=== PATIENT | male | born 1965 | race Caucasian/White ===

== ENCOUNTER 2023-06-04 09:58 | Emergency (ER) | payer OTHER ==
--- OUTSIDE RECORDS SUMMARY | 2023-06-04 10:02 | XMS REPORT | Continuity of Care Document ---
Author Name Unknown Address [address] [facility] [address] [place] [address] [facility] thconnect Address [address] [facility] [address] [place] [address] Care Team Providers Care Filter Tank Tender Name Role Phone Melody RIVERA Attending Clinician Unavailable Arnoldo Mendoza Attending Clinician Unava ilArnoldo Baker Attending Clinician Unava ilable Arnoldo Mendoza Admitting Clinician Unakings ilable Payers Payer Name Policy Type Policy Number Effective Date Expirati on Date Source Problems Condition Name Condition Details Condition Category Status Onset Date Resolution Date Last Treatment Date Treating Clinician Comments Source Screening for cardiovasc ular system disease Screening for cardiovasc ular condition Problem Common [facility] Snoring Snoring Problem [facility] Morbid obesity Morbid obesity Problem Common [facility] Fatigue Fatigue Problem [facility] Sleep apnea Sleep apnea Problem [facility] Gastroesop hageal reflux disease GERD (gastroeso phageal reflux disease) Problem [facility] Nocturia Nocturia Problem [facility] [id number] Vitamin D deficiency Problem [facility] Reduced libido Decreased libido Problem [facility] [id number] Body mass index (BMI) of 45.0-49.9 in adult Problem [facility] [id number] Primary osteoarthr itis of right knee Problem [facility] Chest pain Chest pain Problem Co mmon [facility] [id number] S/P right knee arthroscop y Problem [facility] Allergic rhinitis Allergic rhinitis Problem [facility] [id number] Unspecifie d injury of right lower leg, initial encounter Problem [facility] [id number] Fever and chills Problem [facility] [id number] Influenza A Problem [facility] [id number] Pain, joint, knee, right Problem [facility] [id number] Other tear of medial meniscus of right knee as current injury, subsequent encounter Problem [facility] Class 3 severe obesity due to excess calories in adult Problem Active [facility] Allergies, Adverse Reactions, Alerts Allergy Name Allergy Type Status Severity Reaction(s) Onset Date Inactive Date Treating Clinician Comments Source Ibuprofe n Allergy to substanc e Active Unknown 07-06 00:00: [address] [facility] ibuprofe n ibuprofe n Active swelling of face, throat, lips, tongue [facility] ibuprofe n Drug Active [facility] Social History Social Habit Start Date Stop Date Quantity Comments Source History of Tobacco Use [facility] Sex Assigned At [facility] Smoking Status Start Date Stop Date Source Never Smoker [facility] Medications Ordered Medication Name Filled Medication Name Start Date Stop Date Current Medication? Ordering Clinician Indication Dosage Frequency Signature (SIG) Comments Components Source Acetaminoph en-Codeine 300-30 MG Acetaminoph en-Codeine 300-30 MG 2022-02 2- 00:00: 00 No 1{table t_as_ne eded} QID Acetaminop hen-Codein e 300-30 MG Acetaminoph en-Codeine 300-30 MG Acetaminoph en-Codeine 300-30 MG 2022-02 2- 00:00: 00 No 1{table t_as_ne eded} QID Acetaminop hen-Codein e 300-30 MG Acetaminoph en-Codeine 300-30 MG Acetaminoph en-Codeine 300-30 MG 3-1 2-12 00:00: 00 No 1{table t_as_ne eded} QID Acetaminop hen-Codein e 300-30 MG Acetaminoph en-Codeine 300-30 MG Acetaminoph en-Codeine 300-30 MG 3-1 2-12 00:00: 00 No 1{table t_as_ne eded} QID Acetaminop hen-Codein e 300-30 MG Acetaminoph en-Codeine 300-30 MG Acetaminoph en-Codeine 300-30 MG 3-1 2-12 00:00: 00 No 1{table t_as_ne eded} QID Acetaminop hen-Codein e 300-30 MG Acetaminoph en-Codeine 300-30 MG Acetaminoph en-Codeine 300-30 MG 3-1 2-12 00:00: 00 No 1{table t_as_ne eded} QID Acetaminop hen-Codein e 300-30 MG Xarelto 10 MG Xarelto 10 MG 3- 2-11 00:00: 00 No 1{table t} QD Xarelto 10 MG Xarelto 10 MG Xarelto 10 MG 2022-1 2-11 00:00: 00 No 1{table t} QD Xarelto 10 MG Xarelto 10 MG Xarelto 10 MG 2022- 2-11 00:00: 00 No 1{table t} QD Xarelto 10 MG Xarelto 10 MG Xarelto 10 MG 2022-1 2-11 00:00: 00 No 1{table t} QD Xarelto 10 MG Xarelto 10 MG Xarelto 10 MG 3-1 2-11 00:00: 00 No 1{table t} QD Xarelto 10 MG Xarelto 10 MG Xarelto 10 MG 2022-1 2-11 00:00: 00 No 1{table t} QD Xarelto 10 MG Meloxicam 7.5 MG Meloxicam 7.5 MG 3-1 1-20 00:00: 00 No 1{table t} QD Meloxicam 7.5 MG Meloxicam 7.5 MG Meloxicam 7.5 MG 2022-02 00:00: 00 No 1{table t} QD Meloxicam 7.5 MG Meloxicam 7.5 MG Meloxicam 7.5 MG 2022-02 00:00: 00 No 1{table t} QD Meloxicam 7.5 MG Meloxicam 7.5 MG Meloxicam 7.5 MG 2022-02 00:00: 00 No 1{table t} QD Meloxicam 7.5 MG Meloxicam 7.5 MG Meloxicam 7.5 MG 2022-02 00:00: 00 No 1{table t} QD Meloxicam 7.5 MG Meloxicam 7.5 MG Meloxicam 7.5 MG 2022-02 00:00: 00 No 1{table t} QD Meloxicam 7.5 MG Tamiflu Tamiflu 2019-0 2-20 00:00: 00 Yes Adelita Fry 1 capsule Common [facility] Tamiflu 75 MG Tamiflu 75 MG 2019-0 2-20 00:00: 00 No 1{capsu le} BID Tamiflu 75 MG Tamiflu 75 MG Tamiflu 75 MG 2019-0 2-20 00:00: 00 No 1{capsu le} BID Tamiflu 75 MG Tamiflu 75 MG Tamiflu 75 MG 2019-0 2-20 00:00: 00 No 1{capsu le} BID Tamiflu 75 MG Tamiflu 75 MG Tamiflu 75 MG 2019-0 2-20 00:00: 00 No 1{capsu le} BID Tamiflu 75 MG Tamiflu 75 MG Tamiflu 75 MG 2019-0 2-20 00:00: 00 No 1{capsu le} BID Tamiflu 75 MG Tamiflu 75 MG Tamiflu 75 MG 2019-0 2-20 00:00: 00 No 1{capsu le} BID Tamiflu 75 MG Xarelto Xarelto 2018- 2- 00:00: 00 Yes Adelita Fry 1 tablet with food Common [facility] Xarelto 20 MG Xarelto 20 MG No 1{table t_with_ food} QD Xarelto 20 MG Xarelto 20 MG Xarelto 20 MG No 1{table t_with_ food} QD Xarelto 20 MG Xarelto 20 MG Xarelto 20 MG No 1{table t_with_ food} QD Xarelto 20 MG Xarelto 20 MG Xarelto 20 MG No 1{table t_with_ food} QD Xarelto 20 MG Xarelto 20 MG Xarelto 20 MG No 1{table t_with_ food} QD Xarelto 20 MG Xarelto 20 MG Xarelto 20 MG No 1{table t_with_ food} QD Xarelto 20 MG No Home Meds No [facility] Vital Signs Vital Name Observation Time Observation Value Comments S ource bmi 2023-02-11 09:00:00 41.55 kg/m2 Comm on [facility] blood pressure systolic 2023-02-11 09:00:00 136 mm[Hg] [facility] blood pressure diastolic 2023-02-11 09:00:00 84 mm[Hg] [facility] height 2023-02-11 09:00:00 73.0 [in_i] Comm on [facility] weight 2023-02-11 09:00:00 315 [lb_av] Comm on [facility] temperature 2023-02-11 09:00:00 97.8 [degF] Com [facility] height 2023-02-03 10:00:00 73.0 [in_i] Comm on [facility] weight 2023-02-03 10:00:00 316 [lb_av] Comm on [facility] temperature 2023-02-03 10:00:00 98.1 [degF] Com [facility] bmi 2023-02-03 10:00:00 41.69 kg/m2 Comm on [facility] blood pressure systolic 2023-02-03 10:00:00 130 mm[Hg] [facility] blood pressure diastolic 2023-02-03 10:00:00 80 mm[Hg] [facility] height 2023-01-18 10:30:00 73.0 [in_i] Comm on [facility] weight 2023-01-18 10:30:00 317 [lb_av] Comm on [facility] temperature 2023-01-18 10:30:00 98.2 [degF] Com [facility] bmi 2023-01-18 10:30:00 41.82 kg/m2 Comm on [facility] blood pressure systolic 2023-01-18 10:30:00 133 mm[Hg] Common [facility] blood pressure diastolic 2023-01-18 10:30:00 81 mm[Hg] [facility] height 2022-12-28 09:00:00 73.0 [in_i] Comm on [facility] weight 2022-12-28 09:00:00 316 [lb_av] Comm on [facility] temperature 2022-12-28 09:00:00 98.6 [degF] Com [facility] bmi 2022-12-28 09:00:00 41.69 kg/m2 Comm on [facility] blood pressure systolic 2022-12-28 09:00:00 132 mm[Hg] [facility] blood pressure diastolic 2022-12-28 09:00:00 78 mm[Hg] [facility] Height/Length Measured 2021-02-27 09:13:43 186 cm Weight Dosing 2021-02-27 09:13:43 132.00 kg Procedures Procedure Date / Time Performed Performing Clinicia n Source Low level established patient office visit 2019-02-21 00:00:00 [facility] Encounters Start Date/Time End Date/Time Encounter Type Admission Type Attending Clinicians Care Facility Care Department Encounter ID Source 2023-02-04 11:29:00 [facility] [id number] [facility] 2022-12-28 09:26:00 Outpatient Melody RIVERA [facility]ITAL[facility] STLC [id number] [facility] 2022-12-24 12:00:00 Outpatient RIVERA, Na STLMLC STLMLC [id number] [facility] 2021-03-05 11:21:20 Outpatient Bree Na STLMLC STLMLC [id number] [facility] 2021-03-05 11:19:50 Outpatient Bree Na STLMLC STLMLC [id number] [facility] 2021-03-05 11:08:52 Outpatient Rivera, Na STLMLC STLMLC [id number] [facility] 2021-03-05 11:04:23 Outpatient Bree Na STLMLC STLMLC [id number] [facility] 2023-02-11 00:00:00 2023-02-11 00:00:00 (F/U) Follow Up Visit STLMLC STLMLC [id number] [facility] 2023-02-03 00:00:00 2023-02-03 00:00:00 (PO) Post Op STLMLC STLMLC [id number] [facility] 2023-01-18 00:00:00 2023-01-18 00:00:00 (F/U) Follow Up Visit STLMLC STLMLC [id number] [facility] 2023-01-18 00:00:00 2023-01-18 00:00:00 (TEL) STLMLC STLMLC [id number] [facility] 2022-12-29 00:00:00 2022-12-29 00:00:00 (TEL) STLMLC STLMLC [id number] [facility] 2022-12-28 00:00:00 2022-12-28 00:00:00 ([facility] [employer]) New Patient STLMLC STLMLC [id number] [facility] 2019-05-22 08:10:00 2019-05-22 08:10:00 Outpatient Mikael tim [facility] Louie [facility] [id number] [facility] 2019-03-30 08:00:00 2019-03-30 08:00:00 [facility] [facility] [id number] [facility] 2019-03-24 03:23:00 2019-03-24 03:23:00 [facility] [address] [facility] [facility] [id number] [facility] 2019-02-21 10:38:00 2019-03-10 23:59:00 Discharged Recurring JAMAL MEDRANO [facility] [id number] [address] [place] [address] 2019-03-10 10:40:00 2019-03-10 10:40:00 [facility] [address] [facility] [place] [facility] [id number] [facility] 2019-01-31 11:20:00 2019-01-31 11:20:00 [facility] [address] [facility] [id number] [facility] 2019-01-30 11:25:00 2019-01-30 11:25:00 [facility] [address] [facility] [place] [facility] [id number] [facility] 2019-01-18 11:20:00 2019-01-18 11:20:00 [place] [place] [facility] [id number] [facility] 2019-01-16 16:14:00 2019-01-17 14:13:00 Inpatient 1 Arnoldo Mendoza Michael MCSETX TEL [id number] [facility] 2018-05-06 10:30:00 2018-05-06 10:30:00 [facility] [address] [facility] [place] [facility] [id number] [facility] Results Test Description Test Time Test Comments Results Resul t Comments Source US Lower Ext Venous Duplex Bilateral 2019-01-17 08:33:40 Patient: [place] Date/Time01/17/2019 08:18 CSTReason for ExamPE;Other (please specify)ReportEXAM: Right/Left Lower Extremity Duplex Venous Sonogram.TECHNIQUE: Greyscale imaging with and without Doppler interrogation including Doppler wave-form analysis and Doppler color-flow imaging.HISTORY: Left lower extremity pain x2 weeks with recent pulmonary embolismCOMPARISON: None available at current institutionFINDINGS:R ight lower extremity: The common femoral, superficial femoral, and popliteal veins demonstrated normal compressibility, and normal augmented and phasic Doppler data were obtained. Normal augmented Doppler data was obtained from the peroneal, posterior tibial, and anterior tibial veins.Left lower extremity: The common femoral and superficial femoral veins demonstrated normal compressibility, and normal augmented and phasic Doppler data were obtained. Partial compressibility of the popliteal and peroneal veins, with internal hypoechoic thrombus. Noncompressibility of the posterior tibial vein, without phasic flow.IMPRESSION:Deep vein thrombosis of the left lower extremity popliteal, peroneal, and posterior tibial veins.Findings discussed with charge nurse Amanda Kimbrough RN, at time of dictation at 0832 hours on 01/17/2019. Final Dictated by: MD Doug, SamerDictated DT/TM: 01/17/2019 8:27 amSigned by: MD Doug, SamerSigned (Electronic Signature): 01/17/2019 8:33 am [facility] [id number] 05:36:06* Test Item Value Reference Range Interpretation Comme nts Sodium Level (test code = Sodium Level) 143 mmol/L 136-145 Potassium Level (test code = Potassium Level) 3.9 mmol/L 3.5-5.1 Chloride Level (test code = Chloride Level) 109 mmol/L 98-107 H CO2 (test code = CO2) 29 mmol/L 21-32 Anion Gap (test code = Anion Gap) 5 mmol/L 7-16 L BUN (test code = BUN) 12 mg/dL 7-18 Creatinine Level (test code = Creatinine Level) 1.0 mg/dL 0.7-1.3 Glucose Level (test code = Glucose Level) 100 mg/dL 74-106 Calcium Level (test code = Calcium Level) 8.5 mg/dL 8.5-10.1 Alk Phos (test code = Alk Phos) 109 IntlUnit/L 45-122 Bilirubin Total (test code = Bilirubin Total) 0.9 mg/dL 0.2-1.0 Albumin Level (test code = Albumin Level) 3.1 g/dL 3.4-5.0 L Protein Total (test code = Protein Total) 6.3 g/dL 6.4-8.2 L ALT (test code = ALT) 37 IntlUnit/L 12-78 AST (test code = AST) 20 IntlUnit/L 10-34 [facility] [id number] 05:36:06* Test Item Value Reference Range Interpretation Comme nts Sodium Level (test code = Sodium Level) 143 mmol/L 136-145 Potassium Level (test code = Potassium Level) 3.9 mmol/L 3.5-5.1 Chloride Level (test code = Chloride Level) 109 mmol/L 98-107 H CO2 (test code = CO2) 29 mmol/L 21-32 Anion Gap (test code = Anion Gap) 5 mmol/L 7-16 L BUN (test code = BUN) 12 mg/dL 7-18 Creatinine Level (test code = Creatinine Level) 1.0 mg/dL 0.7-1.3 Glucose Level (test code = Glucose Level) 100 mg/dL 74-106 Calcium Level (test code = Calcium Level) 8.5 mg/dL 8.5-10.1 Alk Phos (test code = Alk Phos) 109 IntlUnit/L 45-122 Bilirubin Total (test code = Bilirubin Total) 0.9 mg/dL 0.2-1.0 Albumin Level (test code = Albumin Level) 3.1 g/dL 3.4-5.0 L Protein Total (test code = Protein Total) 6.3 g/dL 6.4-8.2 L ALT (test code = ALT) 37 IntlUnit/L 12-78 AST (test code = AST) 20 IntlUnit/L 10-34 eGFR AA (test code = eGFR AA) >60 mL/min/1.73 m2 N [facility] [id number] 05:36:06* Test Item Value Reference Range Interpretation Comme nts Sodium Level (test code = Sodium Level) 143 mmol/L 136-145 Potassium Level (test code = Potassium Level) 3.9 mmol/L 3.5-5.1 Chloride Level (test code = Chloride Level) 109 mmol/L 98-107 H CO2 (test code = CO2) 29 mmol/L 21-32 Anion Gap (test code = Anion Gap) 5 mmol/L 7-16 L BUN (test code = BUN) 12 mg/dL 7-18 Creatinine Level (test code = Creatinine Level) 1.0 mg/dL 0.7-1.3 Glucose Level (test code = Glucose Level) 100 mg/dL 74-106 Calcium Level (test code = Calcium Level) 8.5 mg/dL 8.5-10.1 Alk Phos (test code = Alk Phos) 109 IntlUnit/L 45-122 Bilirubin Total (test code = Bilirubin Total) 0.9 mg/dL 0.2-1.0 Albumin Level (test code = Albumin Level) 3.1 g/dL 3.4-5.0 L Protein Total (test code = Protein Total) 6.3 g/dL 6.4-8.2 L ALT (test code = ALT) 37 IntlUnit/L 12-78 AST (test code = AST) 20 IntlUnit/L 10-34 eGFR AA (test code = eGFR AA) >60 mL/min/1.73 m2 N eGFR Non-AA (test code = eGFR Non-AA) >60 mL/min/1.73 m2 N Complete Blood Count with [id number] 04:57:54* Test Item Value Reference Range Interpretation Comme nts WBC (test code = WBC) 8.4 x10 4.8-10.8 RBC (test code = RBC) 4.35 x10 4.60-6.20 L Hgb (test code = Hgb) 14.2 g/dL 14.0-18.0 MCV (test code = MCV) 96.7 fL 80.0-95.0 H Hct (test code = Hct) 42.0 % 38.0-52.0 MCHC (test code = MCHC) 33.9 g/dL 31.0-36.0 RDW (test code = RDW) 13.8 % 11.5-14.5 MCH (test code = MCH) 32.7 pg 26.0-32.0 H Platelets (test code = Platelets) 220 x10 140-440 MPV (test code = MPV) 7.9 fL 7.5-11.2 Slide Review (test code = Slide Review) Auto N Result created b y GL_SET_SLIDE_REVIEW_A UTO Automated [id number] 04:57:54* Test Item Value Reference Range Interpretation Comme nts Neutro Auto (test code = Neutro Auto) 54.0 % N Lymph Auto (test code = Lymph Auto) 30.0 % N Mckenzie Auto (test code = Mckenzie Auto) 12.9 % N Eos, Auto (test code = Eos, Auto) 2.4 % N Basophil Auto (test code = B asophil Auto) 0.7 % N Neutro Absolute (test code = Neutro Absolute) 4.5 x10 2.7-7.3 Lymph Absolute (test code = Lymph Absolute) 2.5 x10 0.8-3.5 Mckenzie Absolute (test code = M hardik Absolute) 1.1 x10 0.3-0.9 H Eos Absolute (test code = Eo s Absolute) 0.2 x10 0.0-0.3 Baso Absolute (test code = B aso Absolute) 0.1 x10 0.0-0.1 CT Angio [id number] 21:13:34Patient: [place] Date/Time01/16/2019 20:53 CSTReason for ExamChest painR eportOrdering Physician: Dom Galindoinical Indication: Chest painAdditional Clinical Information:Comparison: NoneTechnique: The exam is performed with axial postcontrast images with 3-D MIPS reconstruction. The exam was performed using the ALARA principles. Interpretation based on extrapolated NASCET criteria..Findings: There is slightly suboptimal enhancement of the pulmonary arteries.There are however as multiple filling defects seen in the left upper lobe and left lower lobe pulmonary arteries. It also pulmonary emboli in the right lower lobe segmental arteries.There is been previous gastric surgery. Upper liver spleen enhances normally. There is no adrenal mass.Lung windows shows no infiltrates but there is mild pleural-based nodular atelectasis in right middle lobe and lingulaIMPRESSION: Bilateral pulmonary emboli the left greater than right. No saddle embolus.2. Motion artifact.3. Normal diameter thoracic aorta.4. Mild pleural-based nodular atelectasis in the right middle lobe and lingula.RL: [id number] Final Dictated by: MD Tatyana, Ana SDictated DT/TM: 01/16/2019 9:17 pmSigned by: MD Tatyana, Ana SSigned (Electronic Signature): 01/16/2019 9:13 pm Troponin [id number] 20:45:12* Test Item Value Reference Range Interpretation Comme nts Troponin-I (test code = Troponin-I) <0.015 ng/mL 0.010-0.040 [facility] [id number] 19:35:12* Test Item Value Reference Range Interpretation Comme nts Sodium Level (test code = Sodium Level) 143 mmol/L 136-145 Potassium Level (test code = Potassium Level) 4.5 mmol/L 3.5-5.1 Chloride Level (test code = Chloride Level) 107 mmol/L 98-107 CO2 (test code = CO2) 30 mmol/L 21-32 Anion Gap (test code = Anion Gap) 6 mmol/L 7-16 L BUN (test code = BUN) 14 mg/dL 7-18 Creatinine Level (test code = Creatinine Level) 1.1 mg/dL 0.7-1.3 Glucose Level (test code = Glucose Level) 102 mg/dL 74-106 Calcium Level (test code = Calcium Level) 8.9 mg/dL 8.5-10.1 Alk Phos (test code = Alk Phos) 119 IntlUnit/L 45-122 Bilirubin Total (test code = Bilirubin Total) 0.5 mg/dL 0.2-1.0 Albumin Level (test code = Albumin Level) 3.6 g/dL 3.4-5.0 Protein Total (test code = Protein Total) 7.0 g/dL 6.4-8.2 ALT (test code = ALT) 45 IntlUnit/L 12-78 AST (test code = AST) 24 IntlUnit/L 10-34 Comprehensive Metabolic [id number] 19:35:12* Test Item Value Reference Range Interpretation Comme nts Sodium Level (test code = Sodium Level) 143 mmol/L 136-145 Potassium Level (test code = Potassium Level) 4.5 mmol/L 3.5-5.1 Chloride Level (test code = Chloride Level) 107 mmol/L 98-107 CO2 (test code = CO2) 30 mmol/L 21-32 Anion Gap (test code = Anion Gap) 6 mmol/L 7-16 L BUN (test code = BUN) 14 mg/dL 7-18 Creatinine Level (test code = Creatinine Level) 1.1 mg/dL 0.7-1.3 Glucose Level (test code = Glucose Level) 102 mg/dL 74-106 Calcium Level (test code = Calcium Level) 8.9 mg/dL 8.5-10.1 Alk Phos (test code = Alk Phos) 119 IntlUnit/L 45-122 Bilirubin Total (test code = Bilirubin Total) 0.5 mg/dL 0.2-1.0 Albumin Level (test code = Albumin Level) 3.6 g/dL 3.4-5.0 Protein Total (test code = Protein Total) 7.0 g/dL 6.4-8.2 ALT (test code = ALT) 45 IntlUnit/L 12-78 AST (test code = AST) 24 IntlUnit/L 10-34 eGFR AA (test code = eGFR AA) >60 mL/min/1.73 m2 N Comprehensive [facility] [id number] 19:35:12* Test Item Value Reference Range Interpretation Comme nts Sodium Level (test code = Sodium Level) 143 mmol/L 136-145 Potassium Level (test code = Potassium Level) 4.5 mmol/L 3.5-5.1 Chloride Level (test code = Chloride Level) 107 mmol/L 98-107 CO2 (test code = CO2) 30 mmol/L 21-32 Anion Gap (test code = Anion Gap) 6 mmol/L 7-16 L BUN (test code = BUN) 14 mg/dL 7-18 Creatinine Level (test code = Creatinine Level) 1.1 mg/dL 0.7-1.3 Glucose Level (test code = Glucose Level) 102 mg/dL 74-106 Calcium Level (test code = Calcium Level) 8.9 mg/dL 8.5-10.1 Alk Phos (test code = Alk Phos) 119 IntlUnit/L 45-122 Bilirubin Total (test code = Bilirubin Total) 0.5 mg/dL 0.2-1.0 Albumin Level (test code = Albumin Level) 3.6 g/dL 3.4-5.0 Protein Total (test code = Protein Total) 7.0 g/dL 6.4-8.2 ALT (test code = ALT) 45 IntlUnit/L 12-78 AST (test code = AST) 24 IntlUnit/L 10-34 eGFR AA (test code = eGFR AA) >60 mL/min/1.73 m2 N eGFR Non-AA (test code = eGFR Non-AA) >60 mL/min/1.73 m2 N Lactic Acid, Plasma (Venous)2019-01-16 18:46:10* Test Item Value Reference Range Interpretation Comme nts Lactic Acid, Plasma (Venous) (test code = Lactic Acid, Plasma (Venous)) 1.1 mmol/L 0.4-2.0 D-Dimer [id number] 18:39:065.11The D-Dimer assay is intended for use as an aid in the diagnosis of Deep Vein Thrombosis(DVT) or Pulmonary Embolism(PE) except in patients with the following: *Therapeutic dose anticoagulant therapy for >24 hours *Fibrinolytic therapy within previous 7 days *Trauma or surgery within previous4 weeks *Disseminated malignancies *Aortic aneurysm *Sepsis, severe infections, pneumonia, severe skin infections *Cirrhosis * A cut-off value of <0.5 mg/L FEU makes a diagnosis of DVT or PEunlikely.Complete Blood Count with [id number] 17:46:24* Test Item Value Reference Range Interpretation Comme nts WBC (test code = WBC) 10.7 x10 4.8-10.8 RBC (test code = RBC) 4.75 x10 4.60-6.20 Hgb (test code = Hgb) 15.0 g/dL 14.0-18.0 Hct (test code = Hct) 45.2 % 38.0-52.0 MCV (test code = MCV) 95.1 fL 80.0-95.0 H RDW (test code = RDW) 14.2 % 11.5-14.5 MCHC (test code = MCHC) 33.2 g/dL 31.0-36.0 MCH (test code = MCH) 31.6 pg 26.0-32.0 Platelets (test code = Platelets) 251 x10 140-440 MPV (test code = MPV) 7.7 fL 7.5-11.2 Slide Review (test code = Slide Review) Auto N Result created b y GL_SET_SLIDE_REVIEW_A UTO Automated [id number] 17:46:24* Test Item Value Reference Range Interpretation Comme nts Neutro Auto (test code = Neutro Auto) 62.3 % N Lymph Auto (test code = Lymph Auto) 25.1 % N Mckenzie Auto (test code = Mckenzie Auto) 10.5 % N Eos, Auto (test code = Eos, Auto) 1.5 % N Basophil Auto (test code = B asophil Auto) 0.6 % N Neutro Absolute (test code = Neutro Absolute) 6.7 x10 2.7-7.3 Lymph Absolute (test code = Lymph Absolute) 2.7 x10 0.8-3.5 Mckenzie Absolute (test code = M hardik Absolute) 1.1 x10 0.3-0.9 H Eos Absolute (test code = Eo s Absolute) 0.2 x10 0.0-0.3 Baso Absolute (test code = B aso Absolute) 0.1 x10 0.0-0.1 POC Troponin [id number] 17:45:52* Test Item Value Reference Range Interpretation Comme nts Troponin I, POC (test code = Troponin I, POC) 0.00 ng/mL 0.00-0.08 0.6-1.9 ng/ml m ay indicate Myocardial Damage2.0 ng/ml is the diagnostic cutoff for Myocardial Damage. When diagnosing AMI, look for the serial rise and fall of TroponinAny conditions resulting in myocardial cell damage can potentiallyincrease cardiac Troponin I levels. These conditions include, butare not limited to: angina, unstable angina, congestive heart faillure,myocarditis, cardiac surgery, or invasive testing.Serial sampling as appropriate is recommended to detect the temporalrise and fall of troponin levels.For diagnostic purposes, the Troponin I results should be used inconjunction with other information such as EKG, CKMB, clinicalobservations, symptons, etc. XR Chest 1 View [id number] 17:40:01Patient: [place] Date/Time01/16/2019 16:53 CSTReason for ExamChest painReportCHEST SINGLE VIEW:REASON FOR STUDY: Chest painFINDINGS:Cardiomediastinal structures are withinnormal limits. No pleural fluid or pulmonary infiltrates are identified. The bony architecture appears intact, where adequately seen.IMPRESSION:No active cardiopulmonary process is identified. Final Dictated by: MD Noriega Craig ADictated DT/TM: 01/16/2019 5:39 pmSigned by: MD Noriega Craig ASigned (Electronic Signature): 01/16/2019 5:40 pmMRI Knee Right Wo ContMRI Knee Right Wo Cont
[2023-06-04 10:38] LABS: Absolute Basophils 0.1 K/uL (0-0.5); Absolute Eosinophils 0.3 K/uL (0-0.5); Absolute Lymphocytes (CBC) 2.2 K/uL (0.7-4.9); Absolute Monocytes 1.3 K/uL (0.1-1.3); Absolute Neutrophil 5.2 K/uL (1.8-8.0); Basophils % 0.6 % (0-1.3); Eosinophils % 3.7 % (0-4.4); Hematocrit 42.1 % (39.6-49.0); Hemoglobin 13.9 g/dL (13.6-17.9); Lymphocytes % 24.6 % (15.3-44.8); MCH 31.5 pg (27.0-35.0); MCHC 33.1 g/dL (32.0-36.0); MCV 95.4 fL (80-100); MPV 7.9 fL (7.6-11.3); Monocytes % 13.8 % (3.3-12.3); Neutrophils % 57.3 % (41.7-73.7); Platelets 192 thou/uL (152-406); RBC Red Blood Cell Count 4.41 M/uL (4.33-5.43); Red Cell Distribution Width 14.1 % (12.1-15.2)
[2023-06-04 10:48] LABS: PT Prothrombin Time 12.4 SECONDS (9.5-12.5); PTT, Activated Partial Thromb 34.7 SECONDS (24.3-36.9); Protime INR 1.13
[2023-06-04 10:58] LABS: ALT/SGPT 59 U/L (16-61); AST/SGOT 30 U/L (15-37); Albumin 3.7 g/dL (3.4-5.0); Albumin/Globulin Ratio 0.9 (1.1-1.8); Alkaline Phosphatase 116 U/L (45-117); Anion Gap 9.9 mEq/L (5.0-15.0); BUN Blood Urea Nitrogen 14 mg/dL (7-18); Bicarbonate 25 mEq/L (21-32); Bilirubin Total 0.2 mg/dL (0.2-1.0); Globulin 4.1 g/dL (2.3-3.5); Glomerular Filtration Rate 73 ml/min (=/>90); Glucose Level 140 mg/dL (74-106); Magnesium 2.2 mg/dL (1.6-2.4); NT PRO-BNP 181 pg/mL (<125); Potassium 3.9 mEq/L (3.5-5.1); Protein, Total 7.8 g/dL (6.4-8.2); Sodium Level 139 mEq/L (136-145); Troponin High Sensitivity 20.1 pg/mL (<58.9)
--- NOTE | 2023-06-04 10:58 | RAD REPORT ---
EXAM DESCRIPTION: CT - Chest For Pe Angio - 06/04/2023 10:46 am CLINICAL HISTORY: Chest pain. DYSPNEA COMPARISON: No comparisons TECHNIQUE: CT angiogram of the pulmonary arteries was performed with MIP. All CT scans are performed using dose optimization technique as appropriate and may include automated exposure control or mA/KV adjustment according to patient size. FINDINGS: There is extensive bilateral pulmonary embolism present including saddle embolism. Moderat e RV strain pattern is observed. No acute aortic finding demonstrated. 4 mm nodule is present in the right upper lobe laterally. The lungs are otherwise clear. No significant pericardial or pleural fluid. No concerning bony finding. IMPRESSION: Extensive bilateral pulmonary thromboembolism is seen with saddle embolism present. Moderate RV strain pattern observed.
[2023-06-04 10:59] LABS: Bilirubin Direct < 0.1 mg/dL (0-0.2); Bilirubin Indirect, Calculated ND mg/dL (0.2-0.8)
[2023-06-04] MEDS ORDERED: HEPARIN/D5W 25,000 UNIT/500 ML BAG IV ONE (11:15)
[2023-06-04] MEDS ORDERED: HEPARIN 5000 UNIT/ML 1 ML VIAL ONE (11:15)
--- NOTE | 2023-06-04 11:53 | RAD REPORT ---
EXAM DESCRIPTION: US - Extremity Venous Uni Ltd - 06/04/2023 11:35 am CLINICAL HISTORY: swelling, pain Leg swelling and edema. COMPARISON: Extremity Venous Uni Ltd dated 12/28/2022 FINDINGS: Left lower extremity venous system was interrogated with Doppler technique. Thrombosis is present from the mid left femoral vein to the posterior tibial vein. IMPRESSION: Positive for extensive lower extremity DVT.
--- NOTE | 2023-06-04 13:15 | EDPHYS ---
Physician Documentation [facility] Name: Hank Mo Age: 57 yrs Sex: Male : 1965 Arrival Date: 06/04/2023 Time: 09:58 Bed 6 Private MD: ED Physician Andrew Beltran HPI: 06/03 13:56 This 57 yrs old Male presents to ER via Ambulatory with complaints of Shortness Of rt Breath, Leg Pain. 13:56 Patient with previous history of DVT, PE presents to the ED with about 5 days of a left rt leg pain, swelling as well as a chest pain, shortness of breath consistent with previous DVT PE. Denies other acute complaints this time, symptoms are moderate in severity, no other aggravating relieving factors.. Historical: - Allergies: 10:02 Ibuprofen; aa5 - PMHx: 10:03 Left DVT; PE; aa5 - PSHx: 10:03 Gastric sleeve; Appendectomy; aa5 - Immunization history:: Adult Immunizations unknown. - Infectious Disease History:: Denies. - Social history:: Smoking status: Patient denies any tobacco usage or history of. ROS: 13:56 Constitutional: Negative for fever, chills, and weight loss, Abdomen/GI: Negative for rt abdominal pain, nausea, vomiting, diarrhea, and constipation, MS/Extremity: Negative for injury and deformity, Skin: Negative for injury, rash, and discoloration, Neuro: Negative for headache, weakness, numbness, tingling, and seizure, 13:56 Cardiovascular: Positive for chest pain, edema, 13:56 Respiratory: Positive for cough, shortness of breath, 13:56 MS/extremity: Positive for pain, swelling, Exam: 13:56 Constitutional: This is a well developed, well nourished patient who is awake, alert, rt and in no acute distress. Head/Face: Normocephalic, atraumatic. Chest/axilla: Normal chest wall appearance and motion. Nontender with no deformity. No lesions are appreciated. Cardiovascular: Regular rate and rhythm with a normal S1 and S2. No gallops, murmurs, or rubs. Normal PMI, no JVD. No pulse deficits. Respiratory: Lungs have equal breath sounds bilaterally, clear to auscultation and percussion. No rales, rhonchi or wheezes noted. No increased work of breathing, no retractions or nasal flaring. Abdomen/GI: Soft, non-tender, with normal bowel sounds. No distension or tympany. No guarding or rebound. No evidence of tenderness throughout. Skin: Warm, dry with normal turgor. Normal color with no rashes, no lesions, and no evidence of cellulitis. Neuro: Awake and alert, GCS 15, oriented to person, place, time, and situation. Cranial nerves II-XII grossly intact. Motor strength 5/5 in all extremities. Sensory grossly intact. Cerebellar exam normal. Normal gait. Psych: Awake, alert, with orientation to person, place and time. Behavior, mood, and affect are within normal limits. 13:56 ECG was reviewed by the Attending Physician. 13:56 Musculoskeletal/extremity: Edema with tenderness to the left lower extremity. Vital Signs: 10:01 BP 124 / 80; Pulse 107; Resp 24 S; Temp 98.2(O); Pulse Ox 95% on R/A; Weight 144.24 kg aa5 (R); Height 6 ft. 2 in. (R); 11:45 BP 120 / 93; Pulse 97; Resp 17; Pulse Ox 94% ; nj1 12:45 BP 125 / 84; Pulse 103; Resp 18; Pulse Ox 96% on R/A; nj1 13:24 BP 117 / 84; Pulse 98; Resp 16; Pulse Ox 94% on R/A; Pain 1/10; nj1 14:27 BP 124 / 78; Pulse 90; Resp 18; Pulse Ox 95% on R/A; nj1 10:01 Body Mass Index 40.83 (144.24 kg, 187.96 cm) aa5 13:24 Pain Scale: Adult nj1 MDM: 10:14 Patient medically screened. rt 13:56 Differential diagnosis: DVT, PE. Data reviewed: vital signs, nurses notes, lab test rt result(s), EKG, radiologic studies. Consideration of Admission/Observation Will transfer patient for consideration of catheter directed thrombolytics. Management of patient was discussed with the following: Digital Camera Technician: Discussed with accepting hospitalist at [facility]. I considered the following discharge prescriptions or medication management in the emergency department Medications were administered in the Emergency Department. See MAR. Independent interpretation of the following test(s) in the Emergency Department CT Scan: My interpretation is Saddle embolus interpretation of CT scan images. Counseling: I had a detailed discussion with the patient and/or guardian regarding the historical points, exam findings, and any diagnostic results supporting the discharge/admit diagnosis, lab results, radiology results, the need to transfer to another facility. Response to treatment: There is no appreciated change of the patient's symptoms at this time. 06/03 10:24 Order name: Basic Metabolic Panel; Complete Time: 11: rt 06/03 10:24 Order name: CBC with Diff; Complete Time: rt 06/03 10:24 Order name: LFT's; Complete Time: : rt 06/03 10:24 Order name: Magnesium; Complete Time: 06/03 10:24 Order name: NT PRO-BNP; Complete Time: :06/03 10:24 Order name: PT-INR; Complete Time: : rt 06/03 10:24 Order name: Troponin HS; Complete Time: :06/03 10:24 Order name: Ptt, Activated; Complete Time: :06/03 10:24 Order name: CT Chest For PE Angio; Complete Time: : rt 06/03 10:24 Order name: Extremity Venous Uni Ltd US; Complete Time: 11 rt 06/03 10:24 Order name: EKG; Complete Time: 06/03 10:24 Order name: Cardiac monitoring; Complete Time: 06/03 10:24 Order name: EKG - Nurse/Tech; Complete Time: 06/03 10:24 Order name: IV Saline Lock; Complete Time: rt 06/03 10:24 Order name: Labs collected and sent; Complete Time: rt 06/03 10:24 Order name: O2 Per Protocol; Complete Time: 06/03 10:24 Order name: O2 Sat Monitoring; Complete Time: rt EC:56 Rate is 101 beats/min. Rhythm is regular, Sinus tachycardia with No ectopy. QRS [place] is rt Normal. SC interval is normal. QRS interval is normal. QT interval is normal. No Q waves. T waves are Normal. No ST changes noted. Interpreted by me. Administered Medications: 10:35 Drug: morphine IVP or IV 4 mg IVP once over 4 mins Route: IVP; Infused Over: 4 mins; ld1 Site: right hand; 11:30 Follow up: Response: No adverse reaction; Pain is decreased nj1 10:35 Drug: Ondansetron IVP 4 mg IVP once; over 2 minutes Route: IVP; Site: right hand; ld1 11:30 Follow up: Response: No adverse reaction nj1 11:41 Drug: Heparin (DVT/PE- Bolus per protocol) - HEParin IVP 80 units/kg IVP once; Max nj1 8,000 units {Co-Signature: [email or web address] (Vivien Cao RN).} Route: IVP; Site: left antecubital; 14:41 Follow up: Response: No adverse reaction nj1 11:42 Drug: Heparin (DVT/PE Drip) 18 units/kg/[place] - ([place] [address] units, D5W IV 500 ml) IV nj1 at calculated rate Per protocol; Max initial rate 1800 units/hr {Co-Signature: [email or web address] (Vivien Cao RN).} Route: IV; Rate: calculated rate; Site: left antecubital; 14:40 Follow up: Response: No adverse reaction; IV Status: Infusion continued upon transfer; nj1 IV Intake: 105ml 14:40 Drug: morphine IVP or IV 2 mg IVP once over 4 mins Route: IVP; Infused Over: 4 mins; nj1 Site: right hand; Disposition: 13:56 Critical Care:. rt Disposition Summary: 06/04/23 13:15 Transfer Ordered Notes: Transfer Location: [facility] rt Reason: Higher level of care rt Condition: Critical rt Problem: new rt Symptoms: are unchanged rt Accepting Physician: Dr. Freeman(06/04/23 14:46) nj1 Diagnosis - Saddle pulmonary embolism with right heart strain rt - Left lower extremity DVT rt Forms: - Medication Reconciliation Form rt - SBAR form rt Critical care time excluding procedures: 13:56 Critical care time: Bedside Care: 35 minutes, Consultation: 5 minutes. Total time: 40 rt minutes Signatures: Dispatcher [employer] Lela Guerrier RN RN aa5 Vivien Cao RN RN ld1 Andrew Beltran MD MD rt Katie Briceno RN RN nj1 Cao, Vivien RN ld1 Corrections: (The following items were deleted from the chart) 10:25 10:25 Chest For PE Angio+CT.RAD.CECILZ ordered. EDMS EDMS 14:46 13:15 Dr. Pete houston nj1
--- NOTE | 2023-06-04 13:15 | ER ---
Nurse's Notes [facility] Name: Hank Mo Age: 57 yrs Sex: Male : 1965 Arrival Date: 06/04/2023 Time: 09:58 Bed 6 Private MD: Diagnosis: Saddle pulmonary embolism with right heart strain;Left lower extremity DVT Presentation: 06/03 10:01 Chief complaint: Patient states: "I've been so short of breath over the last few days aa5 and my left calf hurts really bad". Coronavirus screen: At this time, the client does not indicate any symptoms associated with coronavirus-19. Ebola Screen: Patient denies travel to an Ebola-affected area in the 21 days before illness onset. Initial Sepsis Screen: Does the patient meet any 2 criteria? No. Patient's initial sepsis screen is negative. Does the patient have a suspected source of infection? No. Patient's initial sepsis screen is negative. Risk Assessment: Do you want to hurt yourself or someone else? Patient reports no desire to harm self or others. Onset of symptoms was May 2023. 10:01 Method Of Arrival: Ambulatory aa5 10:01 Acuity: JORGE A 2 aa5 Triage Assessment: 10:38 Respiratory: Reports shortness of breath at rest worse on exertion. nj1 Historical: - Allergies: 10:02 Ibuprofen; aa5 - PMHx: 10:03 Left DVT; PE; aa5 - PSHx: 10:03 Gastric sleeve; Appendectomy; aa5 - Immunization history:: Adult Immunizations unknown. - Infectious Disease History:: Denies. - Social history:: Smoking status: Patient denies any tobacco usage or history of. Screenin:36 [facility] ED Fall Risk Assessment (Adult) History of falling in the last 3 months, nj1 including since admission No falls in past 3 months (0 pts) Confusion or Disorientation No (0 pts) Intoxicated or Sedated No (0 pts) Impaired Gait No (0 pts) Mobility Assist Device Used No (0 pt) Altered Elimination No (0 pt) Score/Fall Risk Level 0 - 2 = Low Risk Oriented to surroundings, Maintained a safe environment, Hourly rounding (assess needs \\T\\ fall precautionary measures) done. Abuse screen: Denies threats or abuse. Denies injuries from another. Nutritional screening: No deficits noted. Tuberculosis screening: No symptoms or risk factors identified. Assessment: 10:33 General: Appears in no apparent distress. uncomfortable, Behavior is calm, cooperative, nj1 appropriate for age. Pain: Complains of pain in left calf Pain currently is 3 out of 10 on a pain scale. Alleviated by rest, Aggravated by weight bearing. Neuro: Level of Consciousness is awake, alert, obeys commands, Oriented to person, place, time, situation. Cardiovascular: Reports shortness of breath, Denies chest pain, Patient's skin is warm and dry. Rhythm is regular. Respiratory: Airway is patent Respiratory effort is even, unlabored, Respiratory pattern is regular, Breath sounds are clear in right upper lobe and left upper lobe Breath sounds are diminished in left lower lobe and right lower lobe. 11:20 Reassessment: Not in room, at imaging. nj 11:40 Reassessment: Patient appears in no apparent distress at this time. Patient and/or nj1 family updated on plan of care and expected duration. Pain level reassessed. Patient is alert, oriented x 3, equal unlabored respirations, skin warm/dry/pink. Pain: Denies pain. 12:45 Reassessment: Patient appears in no apparent distress at this time. Patient and/or nj1 family updated on plan of care and expected duration. Pain level reassessed. Patient is alert, oriented x 3, equal unlabored respirations, skin warm/dry/pink. 13:26 Reassessment: Patient appears in no apparent distress at this time. Patient and/or nj1 family updated on plan of care and expected duration. Pain level reassessed. Patient is alert, oriented x 3, equal unlabored respirations, skin warm/dry/pink. 13:57 Reassessment: Unsuccessful attempt to call report at this time. Cannot take report nj until room is clean, advised to call back in 20-30 minutes. 14:29 Reassessment: [facility] here to transport patient. Report given to Ken HARPER. [facility] 14:30 Reassessment: Unsuccessful attempts (x2) to call report at this time. No answer. nj1 Vital Signs: 10:01 BP 124 / 80; Pulse 107; Resp 24 S; Temp 98.2(O); Pulse Ox 95% on R/A; Weight 144.24 kg aa5 (R); Height 6 ft. 2 in. (R); 11:45 BP 120 / 93; Pulse 97; Resp 17; Pulse Ox 94% ; nj1 12:45 BP 125 / 84; Pulse 103; Resp 18; Pulse Ox 96% on R/A; nj1 13:24 BP 117 / 84; Pulse 98; Resp 16; Pulse Ox 94% on R/A; Pain 1/10; nj1 14:27 BP 124 / 78; Pulse 90; Resp 18; Pulse Ox 95% on R/A; nj1 10:01 Body Mass Index 40.83 (144.24 kg, 187.96 cm) aa5 13:24 Pain Scale: Adult nj1 ED Course: 10:01 Patient arrived in ED. aa5 10:01 Arm band placed on. aa5 10:02 Triage completed. aa5 10:12 Andrew Beltran MD is Attending Physician. rt 10:16 Katie Briceno RN is Primary Nurse. nj1 10:34 Initial lab(s) drawn, by me, sent to lab. EKG done, by ED staff, reviewed by Andrew bc6 Devin DOOLEY. Inserted saline lock: 22 gauge in right hand, using aseptic technique. Blood collected. 10:38 Patient has correct armband on for positive identification. Bed in low position. Call nj1 light in reach. Adult w/ patient. Provided Education on: call light, fall precautions. 10:48 CT Chest For PE Angio In Process Unspecified. EDMS 11:24 Extremity Venous Uni Ltd US In Process Unspecified. EDMS 12:44 initiated a transfer with Mary Ellen from the [facility]. eb 13:11 connected the hospitalist consulting practice director for [facility] with Dr. Beltran for patient eb transfer consultation. 13:45 administrative approval given by Mary Ellen Hatfield Rn/ patient has been accepted to [facility] eb [facility] room 2455/ Dr. Mónica Freeman has accepted the patient in transfer/ report to be called to [phone]. 14:43 No provider procedures requiring assistance completed. Patient transferred, IV remains nj1 in place. Administered Medications: 10:35 Drug: morphine IVP or IV 4 mg IVP once over 4 mins Route: IVP; Infused Over: 4 mins; ld1 Site: right hand; 11:30 Follow up: Response: No adverse reaction; Pain is decreased nj 10:35 Drug: Ondansetron IVP 4 mg IVP once; over 2 minutes Route: IVP; Site: right hand; ld1 11:30 Follow up: Response: No adverse reaction nj1 11:41 Drug: Heparin (DVT/PE- Bolus per protocol) - HEParin IVP 80 units/kg IVP once; Max nj1 8,000 units {Co-Signature: donovan (Vivien Cao RN).} Route: IVP; Site: left antecubital; 14:41 Follow up: Response: No adverse reaction nj1 11:42 Drug: Heparin (DVT/PE Drip) 18 units/kg/[place] - ([place] [address] units, D5W IV 500 ml) IV nj1 at calculated rate Per protocol; Max initial rate 1800 units/hr {Co-Signature: donovan (Vivien Cao RN).} Route: IV; Rate: calculated rate; Site: left antecubital; 14:40 Follow up: Response: No adverse reaction; IV Status: Infusion continued upon transfer; nj1 IV Intake: 105ml 14:40 Drug: morphine IVP or IV 2 mg IVP once over 4 mins Route: IVP; Infused Over: 4 mins; nj1 Site: right hand; Medication: 14:43 VIS not applicable for this client. nj1 Intake: 14:40 IV: 105ml; Total: 105ml. nj1 Outcome: 13:15 ER care complete, transfer ordered by . rt 14:43 Transferred by [facility] to [facility], Transfer form completed. nj1 14:43 Condition: stable 14:43 Instructed on the need for transfer, 14:46 Patient left the ED. nj1 Signatures: Dispatcher [employer] EDMS Lela Hay, RN RN aa5 Safia Herndon Lauren, INEZ RN ld1 Andrew Beltran MD MD rt Kinjal Ramirez 6 Katie Briceno RN RN nj1 Vivien Cao RN1
[2023-06-04] MEDS ORDERED: MORPHINE 2 MG/ML SYR ONE (14:37)
[2023-06-04 15:16] VITALS: BP 124/78; TEMP 98.2; O2SAT 95
--- NOTE | 2023-06-07 13:05 | EKG ---
Test Date: 2023-06-04 Test Time: 10:18:10 Field Agronomist: MARY ANN MEASUREMENT RESULTS: Intervals: Rate: 101 [place]: 148 QRSD: 88 QT: 344 QTc: 446 [place]: P: 65 [place]: 148 QRS: -9 T: 73 INTERPRETIVE STATEMENTS: Sinus tachycardia Otherwise normal ECG Compared to ECG 05/20/2018 09:32:51 Sinus rhythm no longer present Electronically Signed On 06-07-23 12:57:52 CDT by Kory Rothman
== END 2023-06-04 14:46 | disposition short-term general hospital (02) ==
LOC: ER 09:58
DX: I26.02 Saddle embolus of pulmonary artery with acute cor pulmonale (principal); I82.402 Acute embolism and thrombosis of unspecified deep veins of left lower extremity; Z88.6 Allergy status to analgesic agent; Z86.718 Personal history of other venous thrombosis and embolism; Z86.711 Personal history of pulmonary embolism
CPT/HCPCS: 93005; 85025; 80048; 36415; 83735; 85610; 80076; 85730; 84484; 83880; 71275; 93971; Q9967; J1644; J2270